=== PATIENT | female | born 1930 | race Caucasian/White ===

== ENCOUNTER 2017-01-13 10:23 | Emergency (ER) | payer BC, OTHER ==
[~2017-01-13] VITALS: Wt 68.2 kg
[2017-01-13] MEDS ORDERED: ACETAMINOPHEN 500 MG TAB PO STA (10:48)
--- NOTE | 2017-01-13 10:59 | ERD ---
ER Documentation Chief Complaint Date/Time DATE: 01/13/17 TIME: 10:58 Chief Complaint lac to forehead s/p mech fall, no ko HPI This is an 86-year-old female who presents the emergency department today for a laceration. Patient states that she was outside in her backyard when her foot got caught and she tripped and she fell forward on her face. Patient is here with her daughter who states that she found her inside the house. Denies any headache, pain, dizziness, blurred vision. Denies any fevers or chills or recent medical illness ROS All systems reviewed and are negative except as per history of present illness. Medications Home Meds Active Scripts Acetaminophen* (Tylophen*) 500 Mg Capsule, 1 CAP PO Q6H Y for PAIN AND OR ELEVATED TEMP, #30 CAP Prov:PEPE PARKS PA-C 01/13/17 Allergies Allergies: Coded Allergies: No Known Allergy (Unverified , 01/13/17) PMhx/Soc History of Surgery: Yes (Leg Varicose veins) Anesthesia Reaction: No Hx Neurological Disorder: No Hx Respiratory Disorders: No Hx Cardiac Disorders: Yes (HTN) Hx Psychiatric Problems: No Hx Miscellaneous Medical Probl: No Hx Alcohol Use: No Hx Substance Use: No Hx Tobacco Use: No Smoking Status: Never smoker Physical Exam Vitals Vital Signs Date Time Temp Pulse Resp B/P Pulse Ox O2 Delivery O2 Flow Rate FiO2 01/13/17 10:24 98.0 77 20 145/65 98 Physical Exam Const: No acute distress Head: 2 separate 1.5 cm lacerations right side of forehead. Eyes: Normal Conjunctiva. PERRLA. EOM intact . ENT: Normal External Ears, Nose and Mouth. No epistaxis. No evidence of dental fracture. Neck: Full range of motion..~ No meningismus. Resp: Clear to auscultation bilaterally Cardio: Regular rate and rhythm, no murmurs Abd: Soft, non tender, non distended. Normal bowel sounds Skin: 2 separate 1.5 cm lacerations forehead. Ecchymosis left knee Back: No midline or flank tenderness Ext: Left knee with full active range of motion. No obvious deformity. No effusion. Evidence of ecchymosis. Pulses 2+. Distal neurovascularly intact Neur: Awake and alert. Cranial nerves II through XII intact. Psych: Normal Mood and Affect Results 24 hrs Current Medications Medications (Trade) Dose Ordered Sig/Compa Route PRN Reason Start Time Stop Time Status Last Admin Dose Admin Acetaminophen (Tylenol Tab) 500 mg ONCE STAT PO 01/13/17 10:48 01/13/17 10:50 DC 01/13/17 10:54 Lidocaine (Xylocaine 2% (Mdv) 20 ml) 20 ml ONCE ONCE INJ 01/13/17 11:00 01/13/17 11:01 DC DIAGNOSTIC IMAGING REPORT Patient: KATHY HOUSE : 1930 Age: 86 Sex: F MR #: [id number] DOS: 01/13/17 0000 Ordering MD: PEPE PARKS PA-C Location: [facility] Room/Bed: PROCEDURE: CT Brain without contrast. CLINICAL INDICATION: Trauma TECHNIQUE: CT scan of the brain was performed on a multidetector high- resolution CT scan. Axial imaging was obtained of the brain without contrast administration. Coronal and sagittal reformatted images were obtained from the axial source images. Standard CT scan of the head without contrast protocols were performed. The total exam CTDI equals 44.88 mGy and the total exam DLP equals 630.2 mGy- cm. One or more of the following dose reduction techniques were used: - Automated exposure control. - Adjustment of the mA and/or kV according to patient size. Use of iterative reconstruction technique. COMPARISON: None. FINDINGS: The ventricular system and peripheral CSF spaces are proportionately prominent consistent with moderate generalized cerebral volume loss. Negative for intracranial masses hemorrhages or midline shift. There is moderate periventricular and subcortical deep white matter changes that is nonspecific and consistent with chronic microvascular ischemic disease. Morejon-white matter junction is unremarkable. There is hard atherosclerotic plaque involving the cavernous carotid arteries and distal right vertebral artery. The paranasal sinuses visualized are unremarkable. The mastoids are unremarkable. The bones and calvarium are intact. There is a right hearing aid present. IMPRESSION: 1. Moderate generalized cerebral volume loss and nonspecific chronic microvascular ischemic disease. 2. Negative for intracranial masses hemorrhages or midline shift. RPTAT:AAJJ B Perez Physician Date Time Electronically viewed and signed by Physician Spencer on 01/13/2017 13:01 BM/ CC: PEPE PARKS PA-C DIAGNOSTIC IMAGING REPORT Patient: KATHY HOUSE : 1930 Age: 86 Sex: F MR #: [id number] DOS: 01/13/17 0000 Ordering MD: PEPE PARKS PA-C Location: [facility] Room/Bed: PROCEDURE: CT scan of the facial bones without contrast. CLINICAL INDICATION: Trauma TECHNIQUE: CT scan of the facial bones without contrast was performed on a multidetector high-resolution CT scan. Standard CT scan of the facial bones without contrast protocols were performed. The total exam CTDI equals 29.3 a mGy and the total exam DLP equals 489.24 mGy- cm. One or more of the following dose reduction techniques were used: - Automated exposure control. - Adjustment of the mA and/or kV according to patient size. Use of iterative reconstruction technique. COMPARISON: CT head same day FINDINGS: A dental bridge is in place. There is a right hearing aid present. There are no facial fractures. The bony mineralization is normal. No focal bony blastic or lytic lesions. The temporomandibular joints are unremarkable. There is minimal chronic right maxillary, left sphenoid , right frontal and bilateral ethmoid sinus disease. There is no evidence of air-fluid levels within the paranasal sinuses. There is chronic left mastoiditis. There is mild chronic mastoiditis. The globes are symmetrical without evidence of rupture or proptosis there is no evidence of intra or extraconal fluid collections or masses bilaterally. There is mild frontal scalp soft tissue swelling and punctate areas of air along the superior right frontal sinus and midline of the inferior frontal scalp consistent with contusion. No radiodense foreign body. The soft tissues are otherwise unremarkable. There are degenerative changes of the mid to upper cervical spine incompletely evaluated on this study. IMPRESSION: 1. Mild soft tissue swelling and contusion involving the right frontal and midline scalp. No underlying foreign body. 2. No evidence of facial fractures. 3. Unremarkable orbits. 4. Chronic sinusitis but no air-fluid levels within the paranasal sinuses. 6. Chronic bilateral mastoiditis. RPTAT:AAJJ Physician Spencer Date Time Electronically viewed and signed by Physician Spencer on 01/13/2017 13:09 BM/ CC: PEPE PARKS PA-C DIAGNOSTIC IMAGING REPORT Patient: KATHY HOUSE : 1930 Age: 86 Sex: F MR #: [id number] DOS: 01/13/17 0000 Ordering MD: PEPE PARKS PA-C Location: [facility] Room/Bed: PROCEDURE: Left knee x-ray CLINICAL INDICATION: Trauma TECHNIQUE: AP, lateral and tunnel views of the left knee were obtained. COMPARISON: None FINDINGS: There is mild degenerate joint disease left knee worse involving the medial compartment. No evidence of acute fracture or dislocation. The bony mineralization is normal. There are no focal bony blastic or lytic lesions. There is a tiny left knee joint effusion. Soft tissues are otherwise unremarkable. IMPRESSION: 1. Mild degenerate joint disease left knee without acute fracture dislocation. 2. Tiny left knee joint effusion. Physician Spencer Date Time Electronically viewed and signed by Physician Spencer on 01/13/2017 13:35 BM/ CC: PEPE PARKS PA-C Procedures/MDM This is an 86-year-old female who presents the emergency department today for a laceration to the forehead after mechanical fall. Patient denied losing any consciousness however given the trauma and patient's age I did obtain a head and face CT. I did explain to the patient that the wounds were deep and I would need to close the wounds with sutures. I explained the risks and benefits of the procedure and the patient agreed to proceed. Wound was cleaned in the usual sterile fashion. Patient tolerated the procedure well and there were no complications. Head CT noncontrast shows moderate generalized cerebral volume loss and nonspecific chronic microvascular ischemic disease. Negative for intracranial masses, hemorrhage or midline shift Facial bone CT shows mild soft tissue swelling contusion involving the right frontal midline scalp. There is no underlying foreign body. There is no evidence of facial fractures. Unremarkable orbits. Chronic sinusitis but no air-fluid levels within the paranasal sinuses. Chronic bilateral mastoiditis. Left knee with mild degenerative joint disease without acute fracture dislocation tiny joint effusion. Laceration Repair by me: Anesthesia: 1% lidocaine locally 3 cc Location: Forehead Tendon/Joint/Nerves: No injury Foreign body: None detected after copious irrigation and exploration Technique: 7 Simple Interrupted Sutures using 5-0 nylon Complexity: No subcutaneous sutures/mucosal repair/ edge excision Post Closure Length: 2 separate 1.5 cm Patient's bleeding was easily controlled in the department and there is no indication of anemia. No evidence of compartment syndrome, neurologic injury, vascular injury, open joint, tendon laceration, or foreign body. Patient is appropriate for outpatient follow up. Patient symptoms at this time is consistent with mechanical fall and laceration. I did encourage the patient and patient's daughter to follow up with ENT specialist regarding her chronic sinusitis and chronic mastoiditis. 48 hour wound check. Scar minimization instructions given. Suture removal in 5 -7 days Patient was given Tylenol here in the emergency department. She will be given Tylenol for home. At this time the patient is stable for discharge and outpatient management. Patient should follow up with their PCP in the next 1-2 days. They may return to the emergency department sooner for any persistent or worsening of symptoms. Patient and daughter understood and agreed with the plan. Departure Diagnosis: Primary Impression: Fall Encounter type: initial encounter Qualified Code: W19.XXXA - Fall, initial encounter Additional Impression: Laceration Condition: PEPE Sims PA-C Jan 13, 2017 10:59
[2017-01-13] MEDS ORDERED: LIDOCAINE 2% (MDV) 20 ML INJ INJ ONE (11:00)
--- NOTE | 2017-01-13 13:02 | RADRPT ---
PROCEDURE: CT Brain without contrast. CLINICAL INDICATION: Trauma TECHNIQUE: CT scan of the brain was performed on a multidetector high-resolution CT scan. Axial im aging was obtained of the brain without contrast administration. Coronal and sagittal reformatted i mages were obtained from the axial source images. Standard CT scan of the head without contrast prot ocols were performed. The total exam CTDI equals 44.88 mGy and the total exam DLP equals 630.2 mGy-cm. One or more of the following dose reduction techniques were used: - Automated exposure control. - Adjustment of the mA and/or kV according to patient size. Use of iterative reconstruction technique. COMPARISON: None. FINDINGS: The ventricular system and peripheral CSF spaces are proportionately prominent consistent with moder ate generalized cerebral volume loss. Negative for intracranial masses hemorrhages or midline shift . There is moderate periventricular and subcortical deep white matter changes that is nonspecific a nd consistent with chronic microvascular ischemic disease. Morejon-white matter junction is unremarkab le. There is hard atherosclerotic plaque involving the cavernous carotid arteries and distal right vertebral artery. The paranasal sinuses visualized are unremarkable. The mastoids are unremarkable . The bones and calvarium are intact. There is a right hearing aid present. IMPRESSION: 1. Moderate generalized cerebral volume loss and nonspecific chronic microvascular ischemic disease . 2. Negative for intracranial masses hemorrhages or midline shift. RPTAT:AAJJ Physician Spencer Date Time Electronically viewed and signed by Physician Spencer on 01/13/2017 13:01 JOSE ALFREDO/
--- NOTE | 2017-01-13 13:09 | RADRPT ---
PROCEDURE: CT scan of the facial bones without contrast. CLINICAL INDICATION: Trauma TECHNIQUE: CT scan of the facial bones without contrast was performed on a multidetector high-res olution CT scan. Standard CT scan of the facial bones without contrast protocols were performed. The total exam CTDI equals 29.3 a mGy and the total exam DLP equals 489.24 mGy-cm. One or more of the following dose reduction techniques were used: - Automated exposure control. - Adjustment of the mA and/or kV according to patient size. Use of iterative reconstruction technique. COMPARISON: CT head same day FINDINGS: A dental bridge is in place. There is a right hearing aid present. There are no facial fractures. The bony mineralization is normal. No focal bony blastic or lytic lesions. The temporomandibular j oints are unremarkable. There is minimal chronic right maxillary, left sphenoid , right frontal and bilateral ethmoid sinus disease. There is no evidence of air-fluid levels within the paranasal sin uses. There is chronic left mastoiditis. There is mild chronic mastoiditis. The globes are symmet rical without evidence of rupture or proptosis there is no evidence of intra or extraconal fluid col lections or masses bilaterally. There is mild frontal scalp soft tissue swelling and punctate areas of air along the superior right frontal sinus and midline of the inferior frontal scalp consistent with contusion. No radiodense foreign body. The soft tissues are otherwise unremarkable. There ar e degenerative changes of the mid to upper cervical spine incompletely evaluated on this study. IMPRESSION: 1. Mild soft tissue swelling and contusion involving the right frontal and midline scalp. No under lying foreign body. 2. No evidence of facial fractures. 3. Unremarkable orbits. 4. Chronic sinusitis but no air-fluid levels within the paranasal sinuses. 6. Chronic bilateral mastoiditis. RPTAT:AAJJ Physician Spencer Date Time Electronically viewed and signed by Physician Spencer on 01/13/2017 13:09 /
--- NOTE | 2017-01-13 13:35 | RADRPT ---
PROCEDURE: Left knee x-ray CLINICAL INDICATION: Trauma TECHNIQUE: AP, lateral and tunnel views of the left knee were obtained. COMPARISON: None FINDINGS: There is mild degenerate joint disease left knee worse involving the medial compartment. No evidenc e of acute fracture or dislocation. The bony mineralization is normal. There are no focal bony carmelo stic or lytic lesions. There is a tiny left knee joint effusion. Soft tissues are otherwise unremar kable. IMPRESSION: 1. Mild degenerate joint disease left knee without acute fracture dislocation. 2. Tiny left knee joint effusion. Physician Spencer Date Time Electronically viewed and signed by Alcira Todd Physician on 01/13/2017 13:35 BM/
[2017-01-13] MEDS ORDERED: ACET500C5 PO (13:51)
[2017-01-13 14:04] VITALS: BP 140/60; PULSE 81; RESP 20; TEMP 98
== END 2017-01-13 14:05 | disposition home or self-care (01) ==
LOC: FTE 10:23
DX: S01.81XA Laceration without foreign body of other part of head, initial encounter (principal); I10 Essential (primary) hypertension; W01.0XXA Fall on same level from slipping, tripping and stumbling without subsequent striking against object, initial encounter; Y92.009 Unspecified place in unspecified non-institutional (private) residence as the place of occurrence of the external cause
CPT/HCPCS: 70450; 70486; 73562

== ENCOUNTER 2017-01-15 05:03 | Emergency (ER) | payer BC ==
[~2017-01-15] VITALS: Ht 160 cm; Wt 64.5 kg
[~2017-01-15 05:03] MED LIST: ACET500C5 PO
[2017-01-15 05:06] VITALS: Ht 160 cm; Wt 64.5 kg
--- NOTE | 2017-01-15 05:42 | ERD ---
ER Documentation Chief Complaint Date/Time DATE: 01/15/17 Chief Complaint Wound check of laceration to forehead HPI The patient is an 86-year-old female who presents to the Emergency Department for wound check s/p laceration repair on 01/13/2017. The patient reports that two days ago she was outside in her backyard when she tripped and fell forward onto her face, sustaining a laceration to her forehead. She was then evaluated in the Emergency Department, at which time CT imaging was performed, with no evidence of acute intracranial abnormalities. A laceration repair was performed , and the patient was discharged home, advised to return in 2 days for wound check. The patient notes that she had no syncope, no seizure-like activity, no loss of consciousness. Denies any recent headaches, dizziness, weakness, or vision loss. Denies neck pain or neck stiffness. Denies any purulent drainage or further bleeding from the site of the laceration. No other complaints at this time. ROS All systems reviewed and are negative except as per history of present illness. Medications Home Meds Active Scripts Acetaminophen* (Tylophen*) 500 Mg Capsule, 1 CAP PO Q6H Y for PAIN AND OR ELEVATED TEMP, #30 CAP Prov:PEPE PARKS PA-C 01/13/17 Allergies Allergies: Coded Allergies: No Known Allergy (Unverified , 01/13/17) PMhx/Soc History of Surgery: Yes (Leg Varicose veins, TUBAL LIGATION) Anesthesia Reaction: No Hx Neurological Disorder: No Hx Respiratory Disorders: No Hx Cardiac Disorders: Yes (HTN) Hx Psychiatric Problems: No Hx Miscellaneous Medical Probl: No Hx Alcohol Use: No Hx Substance Use: No Hx Tobacco Use: No Smoking Status: Never smoker Physical Exam Vitals Vital Signs Date Time Temp Pulse Resp B/P Pulse Ox O2 Delivery O2 Flow Rate FiO2 01/15/17 05:06 97.8 60 20 151/72 98 Physical Exam Const: Well-developed, well-nourished, in no acute distress. Head: Normocephalic. Small hematoma to frontal forehead. 2 separate 1.5 cm lacerations to the forehead, one with four overlying sutures in place, and the other with three overlying sutures in place. Lacerations are well-approximated and healing, with no evidence of dehiscence, bleeding or drainage. No surrounding erythema, warmth or tenderness to palpation. No crepitus or step offs. Eyes: Normal Conjunctiva ENT: Normal External Ears, Nose and Mouth. Neck: Supple. Full range of motion. Resp: Clear to auscultation bilaterally Cardio: Regular rate and rhythm Abd: Soft, non tender, non distended. Skin: See Head Exam. Two lacerations to forehead. No wound dehiscence. No surrounding erythema, warmth, deformities. No drainage or bleeding. Ext: No clubbing or cyanosis. No gross deformities. Neur: Awake and alert. GCS 15. No focal neurologic deficits. Psych: Cooperative. Appropriate. Procedures/MDM This is an 86-year-old female who presents to the emergency department for a wound check of two lacerations to the forehead that were repaired 2 days ago. The wounds are clean, dry and intact with no evidence of infection. She has good wound closure and good wound approximation. There is no surrounding erythema, warmth, tenderness or lymphatic streaking to indicate infection. No current evidence of neurologic, vascular or tendon injury. At this time, the patient is in stable condition, with no focal neurologic deficits, and therefore she can be discharged home with strict return precautions for signs of infection, fevers or worsening condition. She is advised to follow up for suture removal in 5 days, or return to the ER sooner for any new or worsening symptoms. I shared my medical decision making and plan with the patient and daughter at length and in great detail, and they verbally understand and agree with the plan for further observation and care as an outpatient. At the time of discharge all questions were answered. Departure Diagnosis: Primary Impression: Encounter for wound re-check Condition: Stable Patient Instructions: Wound Check, Lac F/U (No Infection) Additional Instructions: Follow up with your primary medical provider in 2-3 days for reevaluation and further management. Suture removal in 5 days. Return to the ED sooner for any new or worsening symptoms. SKYLER SOTO PA-C Jan 15, 2017 05:42
== END 2017-01-15 05:47 | disposition home or self-care (01) ==
LOC: FTE 05:03
DX: Z48.01 Encounter for change or removal of surgical wound dressing (principal); I10 Essential (primary) hypertension
CPT/HCPCS: 99281

== ENCOUNTER 2017-01-19 07:07 | Emergency (ER) | payer BC ==
[~2017-01-19] VITALS: Ht 154.9 cm; Wt 64.5 kg
[2017-01-19 07:22] VITALS: Ht 154.9 cm; Wt 64.5 kg
--- NOTE | 2017-01-19 08:17 | ERD ---
ER Documentation Chief Complaint Date/Time DATE: 01/19/17 TIME: 08:07 Chief Complaint suture removal on forehead HPI 86-year-old female accompanied by her daughter came here today for suture removal. Patient has sustained laceration on her forehead on 01/13/2017, which was repaired here. Patient stated that she has no problems, denies pain, swelling, or wound drainage. Denies fever or chills. ROS All systems reviewed and are negative except as per history of present illness. Medications Home Meds Active Scripts Acetaminophen* (Tylophen*) 500 Mg Capsule, 1 CAP PO Q6H Y for PAIN AND OR ELEVATED TEMP, #30 CAP Prov:PEPE PARKS PA-C 01/13/17 Allergies Allergies: Coded Allergies: No Known Allergy (Unverified , 01/19/17) PMhx/Soc History of Surgery: Yes (Leg Varicose veins, TUBAL LIGATION) Anesthesia Reaction: No Hx Neurological Disorder: No Hx Respiratory Disorders: No Hx Cardiac Disorders: Yes (HTN) Hx Psychiatric Problems: No Hx Miscellaneous Medical Probl: No Hx Alcohol Use: No Hx Substance Use: No Hx Tobacco Use: No Smoking Status: Never smoker Physical Exam Vitals Vital Signs Date Time Temp Pulse Resp B/P Pulse Ox O2 Delivery O2 Flow Rate FiO2 01/19/17 07:22 97.4 69 18 154/77 100 Physical Exam General: Patient is well-developed. Awake, alert, and conversant, in no apparent distress Skin: Warm and dry Head: Normocephalic, without palpable deformities. 2 sets of sutures on the forehead, with good healing. No periwound erythema, swelling, or exudates. Eyes: Pupils equal, round, and reactive to light. Extraocular movements intact. No periorbital ecchymosis or step-off Neck: No midline point tenderness, step-off, or deformity to firm palpation of posterior cervical spine. Trachea midline. Carotids equal. No masses. No JVD. Full range of motion of the neck without limitation or pain Chest: No surface trauma. Nontender without crepitus or deformity. No palpable subcutaneous air. Lungs have good tidal volume, lungs clear to auscultate bilaterally Heart: Regular rate and rhythm. No murmur, rub, or gallop Neuro: Alert and oriented 4, GCS 15, cranial nerves II through XII intact. Motor and sensory exam is nonfocal. Reflexes are symmetric Procedures/MDM Suture Removal by me: Sutures removed with tweezers and scissors without incident. No wound dehiscence. Wound shows no evidence of infection, foreign body, neurologic injury, vascular injury. Patient to follow up PRN. Departure Diagnosis: Primary Impression: Encounter for removal of sutures Condition: Good Patient Instructions: Suture Removal, No Complication Additional Instructions: Llame al doctor nombrado abajo (Referral Sources) MAANA y marni ant ANGEL PARA DENTRO DE ANT SEMANA. Dgale a la secretaria que nosotros le instruimos hacer esta angel.Avise o llame si robles condicin se empeora antes de la angel. MAREN LANG. NASREEN Jan 19, 2017 08:16
== END 2017-01-19 07:55 | disposition home or self-care (01) ==
LOC: FTE 07:07
DX: Z48.02 Encounter for removal of sutures (principal); I10 Essential (primary) hypertension
CPT/HCPCS: 99281

== ENCOUNTER 2017-07-28 07:32 | Emergency (ER) | END 2017-07-28 13:11 | disposition home or self-care (01) ==